=== PATIENT | male | born 1940 | race Caucasian/White ===

== ENCOUNTER 2023-06-26 11:30 | Emergency (ER) | payer MEDICARE, SELFPAY ==
[2023-06-26] VITALS (21 sets, daily range): BP systolic 115–156; BP diastolic 55–77; PULSE 60–85; RESP 18–31; TEMP 36.4; O2SAT 93–98; BMI 31.2
[2023-06-26] MEDS: PANTOPRAZOLE 40 MG VIAL 80 MG IV (12:00)
[2023-06-26 12:08] LABS: Add Manual Diff / Slide Review NO; Basophils Absolute Auto 100 /uL (0-100); Basophils Percent Auto 1.2 % (0-2); Eosinophils Absolute Auto 100 /uL (0-450); Eosinophils Percent Auto 0.9 % (2-4); Lymphocytes Absolute Auto 1200 /uL (1100-4500); Lymphocytes Percent Auto 16.2 % (25-40); Mean Corpuscular HGB Conc 33.3 % (30-36); Mean Corpuscular Volume 99.2 fL (80-100); Monocytes Absolute Auto 1200 /uL (0-900); Monocytes Percent Auto 15.7 % (3-14); Neutrophils Absolute Auto 5000 /uL (1500-7000); Platelet Count 229 X10^3/uL (150-400); Red Blood Cell Count 3.32 X10^6/uL (4.5-5.9); Red Cell Distribution Width 15.1 % (11.6-14.8); White Blood Cell Count 7.5 X10^3/uL (4.5-11.0)
[2023-06-26 12:13] LABS: INR 1.5 (0.9-1.3); Prothrombin Time 17.4 SECONDS (10.1-12.7)
[2023-06-26 12:16] LABS: PTT Partial Thromboplastin Tim 39 SECONDS (26-36)
[2023-06-26 12:17] LABS: Alanine Aminotransferase 15 IU/L (<50); Albumin 4.3 g/dL (3.5-5.0); Albumin Globulin Ratio 1.5 (1.0-2.8); Alkaline Phosphatase 61 U/L (38-126); Aspartate Aminotransferase 19 IU/L (17-59); BUN Creatinine Ratio 13.8 (6-22); Bilirubin Total 0.4 mg/dL (0.2-1.3); Blood Urea Nitrogen 45 mg/dL (9-20); Calcium 9.5 mg/dL (8.4-10.2); Carbon Dioxide 17 mmol/L (22-32); Chloride 106 mmol/L (98-107); Estimated Glomerular Filt Rate 18 mL/min (>60); Globulin 2.8 g/dL (1.7-4.1); Glucose 106 mg/dL (80-110); HEMOLYSIS < 15 (0-50); Potassium 6.1 mmol/L (3.4-5.1); Sodium 134 mmol/L (137-145); Total Protein 7.1 g/dL (6.3-8.2)
[2023-06-26 13:21] LABS: Bacteria Urine None Seen; Culture Indicated Urine Cult Not Indicated; RBC Urine None Seen (0-5/HPF); Squamous Epithelial Cell Urine None Seen (0-5/HPF); Urine Comments Microscopic Normal; WBC Urine None Seen (0-5/HPF)
--- NOTE | 2023-06-26 14:56 | DI.CT.S_ITS ---
PROCEDURE: CT ABDOMEN PELVIS WO CON INDICATIONS: GI bleed TECHNIQUE: Noncontrast 5 mm thick sections acquired from the diaphragms to the symphysis. 5 mm coronal and sagittal reformats were then performed. For radiation dose reduction, the following was used: automated exposure control, adjustment of mA and/or kV according to patient size. COMPARISON: None. FINDINGS: Image quality: Excellent. ABDOMEN: Lung bases: Trace bilateral pleural effusions. Atelectasis is seen in the lung bases. Solid organs: Liver is normal in size. Gallbladder is unremarkable a 2.5 x 1.7 cm fluid attenuation lesion is seen in the tail of the pancreas (29/2) Spleen is normal in size. No adrenal nodules. There is severe atrophy of the left kidney. An exophytic cyst is seen at the interpolar region of the left kidney. The right kidney is normal in size. Vascular calcifications are seen in the right renal sinus. Peritoneum and bowel: Multiple diverticula are seen in the colon without signs of acute diverticulitis. No definite hyperdense blood products within the bowel. Normal appendix. A short segment of small bowel is seen within a ventral hernia without signs of obstruction. Small hiatal hernia. Stomach is unremarkable. Nodes and vessels: No retroperitoneal or mesenteric adenopathy by size criteria. Aorta and inferior vena cava are normal in caliber. Miscellaneous: A moderate-sized supraumbilical hernia contains peritoneal fat and a short segment of small bowel without signs of bowel obstruction. PELVIS: Genitourinary: Bladder wall thickness is normal. Prostate is enlarged, measuring 5.9 cm maximum dimension with coarse calcifications. Miscellaneous: Moderate left and small right fat containing inguinal hernias. Bones: No suspicious bony lesions. No vertebral body compression fractures. Degenerative changes are seen in the hips, spine, and sacroiliac joints. Densely sclerotic lesion in the right iliac bone is most likely a benign bone island. IMPRESSION: 1. Colonic diverticulosis without signs of acute diverticulitis. No hyperdense blood products are seen within the GI tract. 2. Supraumbilical hernia contains a short segment of small bowel without signs of bowel obstruction. 3. Severe chronic left renal atrophy. 4. Trace bilateral pleural effusions with atelectasis of the lung bases. 5. Prostatomegaly. Approved by: Malachi Mac M.D. on 06/26/2023 at 15:48
--- NOTE | 2023-06-26 15:03 | ED.GIBLEED ---
HPI - GI Bleed <Julito Fortune MD - Last Filed: 07/15/23 22:00> General Chief complaint: GI Bleed Stated complaint: black stools for 2 months, sent by [facility] Time Seen by Provider: 06/26/23 14:26 Source: patient Mode of arrival: Wheelchair History of Present Illness HPI Narrative: Patient here with his son. Complains off and on lower abdominal pain for the past 2 or 3 months. Last colonoscopy greater than 10 years ago. Patient states he did have black stools when he was on iron pills. He stopped that a long time ago and no longer had black stools. However the last 2 or 3 months he is had dark green stools. No bright red blood per rectum. No dizziness no syncope. No urinary complaints. Patient describes sharp pain when it does occur and lasting less than 10 minutes. It does not radiate to the chest or the back. Does not radiate to the groin or legs. Patient states only has 1 kidney. Has not had any urinary problems. Related Data Home Medications Medication Instructions Recorded Confirmed sitagliptin phos 50 mg-metformin 1 tab PO QDAY ##0 06/10/17 ER 1,000 mg tablet,extend rel 24h mp (Janumet XR) Previous Rx's Medication Instructions Recorded TADALAFIL (CIALIS~) 5 mg PO QDAY ##60 08/10/11 ezetimibe 10 mg tablet (Zetia) 10 mg PO QDAY ##90 06/08/13 rosuvastatin 10 mg tablet (Crestor) 10 mg PO QDAY ##90 06/08/13 valsartan 160 1 tab PO Q DAY #90 tabs 08/06/13 mg-hydrochlorothiazide 12.5 mg tablet (Diovan HCT) Fluticasone Propionate (FLONASE) 2 spray intranasal QDAY #16 sprays 08/10/13 diltiazem HCl 120 mg 120 mg PO QDAY #90 caps 07/01/17 capsule,extended release 24 hr tamsulosin 0.4 mg capsule (Flomax) 0 PO QDAY #180 caps 07/01/17 Allergies Allergy/AdvReac Type Severity Reaction Status Date / Time Sulfa (Sulfonamide Allergy Mild Unverified 02/26/18 13:05 Antibiotics) [SULFA (SULFONAMIDE ANTIBIOTICS)] Atorvastatin Allergy Unknown MYALGIAS Uncoded 02/26/18 13:05 Review of Systems <Julito Fortune MD - Last Filed: 07/15/23 22:00> Review of Systems Narrative: GENERAL: negative chills, fatigue, malaise, fever, sweats. HEENT: negative sinus pain, ear pain, sore throat RESPIRATORY: negative dyspnea, cough CARDIOVASCULAR: negative chest pain, palpitations GASTROINTESTINAL: negative nausea, vomiting, positive abdominal pain : negative dysuria, frequency, hematuria MUSCULOSKELETAL: negative muscle or bony pain SKIN: negative rash, skin lesions NEUROLOGIC: negative weakness, numbness ROS Unobtainable: All systems reviewed & are unremarkable except as noted in HPI and below Patient History <Julito Fortune MD - Last Filed: 07/15/23 22:00> Social History Smoking Status: Never smoker Smoking Status: Never smoker alcohol intake frequency: holidays/special occasions only Substance Use Type: does not use Exam <Julito Fortune MD - Last Filed: 07/15/23 22:00> Narrative Exam Narrative: GENERAL: in no distress, not toxic not dyspneic HEAD: Normocephalic. EYES: Pupils equal round ENT: Mucous membranes moist. NECK: Trachea midline. CARDIOVASCULAR: Regular rate and rhythm RESPIRATORY: Clear to auscultation. Breath sounds equal bilaterally. No wheezes, rales, or rhonchi. GASTROINTESTINAL: Abdomen soft, mild suprapubic tenderness, no pain out of proportion to exam. Bowel sounds are present. No CVA tenderness. No peritoneal signs EXTREMITIES: No gross deformities. BACK: No flank tenderness. NEURO: AOx4. SKIN: Warm and dry PSYCH: Not anxious, is cooperative Initial Vital Signs Initial Vital Signs: Vital Signs Temperature 97.5 F L 06/26/23 11:32 Pulse Rate 71 06/26/23 11:32 Respiratory Rate 18 06/26/23 11:32 Blood Pressure 145/69 H 06/26/23 11:32 Pulse Oximetry 97 06/26/23 11:32 Oxygen Delivery Method Room Air 06/26/23 11:32 <Vera Akhtar DO - Last Filed: 06/26/23 20:33> Initial Vital Signs Initial Vital Signs: Vital Signs Temperature 97.5 F L 06/26/23 11:32 Pulse Rate 71 06/26/23 11:32 Respiratory Rate 18 06/26/23 11:32 Blood Pressure 145/69 H 06/26/23 11:32 Pulse Oximetry 97 06/26/23 11:32 Oxygen Delivery Method Room Air 06/26/23 11:32 Course <Julito Fortune MD - Last Filed: 07/15/23 22:00> Orders Ordered: Discontinued Medications Sodium Chloride (Normal Saline 0.9%) 1,000 mls @ 1,000 mls/hr IV BOLUS ONE Stop: 06/26/23 17:37 Last Infusion: 06/26/23 18:28 Dose: 0 mls/hr Documented By: Admin: 06/26/23 16:47 Dose: 1,000 mls/hr Documented By: MYRNA Sodium Chloride (Normal Saline 0.9%) 1,000 mls @ 1,000 mls/hr IV BOLUS ONE Stop: 06/26/23 18:55 Last Infusion: 06/26/23 18:51 Dose: 0 mls/hr Documented By: Admin: 06/26/23 17:57 Dose: 1,000 mls/hr Documented By: MYRNA Ondansetron HCl (Ondansetron 4 Mg/2 Ml Inj) 4 mg IV NOW PRN PRN Reason: Nausea And Vomiting Ondansetron HCl (Ondansetron 4 Mg Odt) 4 mg SL NOW PRN PRN Reason: Nausea And Vomiting Pantoprazole Sodium (Pantoprazole 40 Mg Vial) 80 mg IV NOW ONE Stop: 06/26/23 11:38 Last Admin: 06/26/23 12:00 Dose: 80 mg Documented By: VALENTINA Vital Signs Vital signs: Vital Signs - 8 hr 06/26/23 13:43 06/26/23 13:44 06/26/23 13:44 Pulse Rate 64 64 Respiratory Rate 22 23 Blood Pressure 133/72 Pulse Oximetry 97 97 06/26/23 14:00 06/26/23 14:00 06/26/23 14:30 Pulse Rate 67 Respiratory Rate 20 Blood Pressure 116/60 126/65 Pulse Oximetry 93 06/26/23 14:30 06/26/23 15:00 06/26/23 15:00 Pulse Rate 66 66 Respiratory Rate 20 Blood Pressure 136/68 Pulse Oximetry 97 98 06/26/23 15:30 06/26/23 16:00 06/26/23 16:30 Pulse Rate 60 64 62 Respiratory Rate Blood Pressure Pulse Oximetry 98 97 97 06/26/23 17:00 06/26/23 17:30 06/26/23 17:56 Pulse Rate 66 67 74 Respiratory Rate Blood Pressure Pulse Oximetry 06/26/23 17:56 06/26/23 18:00 06/26/23 18:00 Pulse Rate 70 Respiratory Rate Blood Pressure 136/77 144/65 H Pulse Oximetry 06/26/23 18:30 06/26/23 18:30 06/26/23 19:00 Pulse Rate 69 78 Respiratory Rate Blood Pressure 154/70 H Pulse Oximetry 06/26/23 19:01 06/26/23 19:01 06/26/23 19:30 Pulse Rate 70 69 Respiratory Rate 20 Blood Pressure 115/55 L Pulse Oximetry <Vera Akhtar DO - Last Filed: 06/26/23 20:33> Orders Ordered: Discontinued Medications Sodium Chloride (Normal Saline 0.9%) 1,000 mls @ 1,000 mls/hr IV BOLUS ONE Stop: 06/26/23 17:37 Last Infusion: 06/26/23 18:28 Dose: 0 mls/hr Documented By: Admin: 06/26/23 16:47 Dose: 1,000 mls/hr Documented By: MYRNA Sodium Chloride (Normal Saline 0.9%) 1,000 mls @ 1,000 mls/hr IV BOLUS ONE Stop: 06/26/23 18:55 Last Infusion: 06/26/23 18:51 Dose: 0 mls/hr Documented By: Admin: 06/26/23 17:57 Dose: 1,000 mls/hr Documented By: MYRNA Ondansetron HCl (Ondansetron 4 Mg/2 Ml Inj) 4 mg IV NOW PRN PRN Reason: Nausea And Vomiting Ondansetron HCl (Ondansetron 4 Mg Odt) 4 mg SL NOW PRN PRN Reason: Nausea And Vomiting Pantoprazole Sodium (Pantoprazole 40 Mg Vial) 80 mg IV NOW ONE Stop: 06/26/23 11:38 Last Admin: 06/26/23 12:00 Dose: 80 mg Documented By: VALENTINA Vital Signs Vital signs: Vital Signs - 8 hr 06/26/23 13:43 06/26/23 13:44 06/26/23 13:44 Pulse Rate 64 64 Respiratory Rate 22 23 Blood Pressure 133/72 Pulse Oximetry 97 97 06/26/23 14:00 06/26/23 14:00 06/26/23 14:30 Pulse Rate 67 Respiratory Rate 20 Blood Pressure 116/60 126/65 Pulse Oximetry 93 06/26/23 14:30 06/26/23 15:00 06/26/23 15:00 Pulse Rate 66 66 Respiratory Rate 20 Blood Pressure 136/68 Pulse Oximetry 97 98 06/26/23 15:30 06/26/23 16:00 06/26/23 16:30 Pulse Rate 60 64 62 Respiratory Rate Blood Pressure Pulse Oximetry 98 97 97 06/26/23 17:00 06/26/23 17:30 06/26/23 17:56 Pulse Rate 66 67 74 Respiratory Rate Blood Pressure Pulse Oximetry 06/26/23 17:56 06/26/23 18:00 06/26/23 18:00 Pulse Rate 70 Respiratory Rate Blood Pressure 136/77 144/65 H Pulse Oximetry 06/26/23 18:30 06/26/23 18:30 06/26/23 19:00 Pulse Rate 69 78 Respiratory Rate Blood Pressure 154/70 H Pulse Oximetry 06/26/23 19:01 06/26/23 19:01 06/26/23 19:30 Pulse Rate 70 69 Respiratory Rate 20 Blood Pressure 115/55 L Pulse Oximetry MDM - GI Bleed <Julito Fortune MD - Last Filed: 07/15/23 22:00> Lab Data 06/26/23 18:59 06/26/23 18:59 Labs: Lab Results 06/26/23 06/26/23 06/26/23 Range/Units 11:55 11:55 11:55 WBC 7.5 (4.5-11.0) X10^3/uL RBC 3.32 L (4.5-5.9) X10^6/uL Hgb 11.0 L (13.5-17.5) g/dL Hct 33.0 L (41-53) % MCV 99.2 (80-100) fL MCH 33.0 (26-34) PG MCHC 33.3 (30-36) % RDW 15.1 H (11.6-14.8) % Plt Count 229 (150-400) X10^3/uL Neut % (Auto) 66.0 (50-75) % Lymph % (Auto) 16.2 L (25-40) % Stokes % (Auto) 15.7 H (3-14) % Eos % (Auto) 0.9 L (2-4) % Baso % (Auto) 1.2 (0-2) % Neut # (Auto) 5000 (9066-4163) /uL Lymph # (Auto) 1200 (1067-1869) /uL Stokes # (Auto) 1200 H (0-900) /uL Eos # (Auto) 100 (0-450) /uL Baso # (Auto) 100 (0-100) /uL PT 17.4 H (10.1-12.7) SECONDS INR 1.5 H (0.9-1.3) APTT 39 H (26-36) SECONDS Sodium 134 L (137-145) mmol/L Potassium 6.1 H (3.4-5.1) mmol/L Chloride 106 (98-107) mmol/L Carbon Dioxide 17 L (22-32) mmol/L BUN 45 H (9-20) mg/dL Creatinine 3.27 H (0.66-1.25) mg/dL Estimated GFR 18 L (>60) mL/min BUN/Creatinine Ratio 13.8 (6-22) Glucose 106 (80-110) mg/dL Calcium 9.5 (8.4-10.2) mg/dL Total Bilirubin 0.4 (0.2-1.3) mg/dL AST 19 (17-59) IU/L ALT 15 (<50) IU/L Alkaline Phosphatase 61 (38-126) U/L Total Protein 7.1 (6.3-8.2) g/dL Albumin 4.3 (3.5-5.0) g/dL Globulin 2.8 (1.7-4.1) g/dL Albumin/Globulin Ratio 1.5 (1.0-2.8) Urine RBC (0-5/HPF) Urine WBC (0-5/HPF) Ur Squamous Epith Cells (0-5/HPF) Urine Bacteria (None) Ur Culture Indicated? Micro UA Comment Blood Type Antibody Screen 06/26/23 06/26/23 06/26/23 Range/Units 11:55 12:38 18:59 WBC (4.5-11.0) X10^3/uL RBC (4.5-5.9) X10^6/uL Hgb (13.5-17.5) g/dL Hct (41-53) % MCV (80-100) fL MCH (26-34) PG MCHC (30-36) % RDW (11.6-14.8) % Plt Count (150-400) X10^3/uL Neut % (Auto) (50-75) % Lymph % (Auto) (25-40) % Stokes % (Auto) (3-14) % Eos % (Auto) (2-4) % Baso % (Auto) (0-2) % Neut # (Auto) (9653-7734) /uL Lymph # (Auto) (9408-1370) /uL Stokes # (Auto) (0-900) /uL Eos # (Auto) (0-450) /uL Baso # (Auto) (0-100) /uL PT (10.1-12.7) SECONDS INR (0.9-1.3) APTT (26-36) SECONDS Sodium 136 L (137-145) mmol/L Potassium 5.5 H (3.4-5.1) mmol/L Chloride 110 H (98-107) mmol/L Carbon Dioxide 18 L (22-32) mmol/L BUN 42 H (9-20) mg/dL Creatinine 3.03 H (0.66-1.25) mg/dL Estimated GFR 20 L (>60) mL/min BUN/Creatinine Ratio 13.9 (6-22) Glucose 90 (80-110) mg/dL Calcium 8.5 (8.4-10.2) mg/dL Total Bilirubin 0.3 (0.2-1.3) mg/dL AST 22 (17-59) IU/L ALT 17 (<50) IU/L Alkaline Phosphatase 53 (38-126) U/L Total Protein 6.2 L (6.3-8.2) g/dL Albumin 3.8 (3.5-5.0) g/dL Globulin 2.4 (1.7-4.1) g/dL Albumin/Globulin Ratio 1.6 (1.0-2.8) Urine RBC None seen (0-5/HPF) Urine WBC None seen (0-5/HPF) Ur Squamous Epith Cells None seen (0-5/HPF) Urine Bacteria None seen (None) Ur Culture Indicated? Cult not indicated Micro UA Comment Microscopic normal Blood Type O Positive Antibody Screen Negative 06/26/23 Range/Units 18:59 WBC (4.5-11.0) X10^3/uL RBC (4.5-5.9) X10^6/uL Hgb 10.2 L (13.5-17.5) g/dL Hct 30.8 L (41-53) % MCV (80-100) fL MCH (26-34) PG MCHC (30-36) % RDW (11.6-14.8) % Plt Count (150-400) X10^3/uL Neut % (Auto) (50-75) % Lymph % (Auto) (25-40) % Stokes % (Auto) (3-14) % Eos % (Auto) (2-4) % Baso % (Auto) (0-2) % Neut # (Auto) (7206-5802) /uL Lymph # (Auto) (8982-2938) /uL Stokes # (Auto) (0-900) /uL Eos # (Auto) (0-450) /uL Baso # (Auto) (0-100) /uL PT (10.1-12.7) SECONDS INR (0.9-1.3) APTT (26-36) SECONDS Sodium (137-145) mmol/L Potassium (3.4-5.1) mmol/L Chloride (98-107) mmol/L Carbon Dioxide (22-32) mmol/L BUN (9-20) mg/dL Creatinine (0.66-1.25) mg/dL Estimated GFR (>60) mL/min BUN/Creatinine Ratio (6-22) Glucose (80-110) mg/dL Calcium (8.4-10.2) mg/dL Total Bilirubin (0.2-1.3) mg/dL AST (17-59) IU/L ALT (<50) IU/L Alkaline Phosphatase (38-126) U/L Total Protein (6.3-8.2) g/dL Albumin (3.5-5.0) g/dL Globulin (1.7-4.1) g/dL Albumin/Globulin Ratio (1.0-2.8) Urine RBC (0-5/HPF) Urine WBC (0-5/HPF) Ur Squamous Epith Cells (0-5/HPF) Urine Bacteria (None) Ur Culture Indicated? Micro UA Comment Blood Type Antibody Screen Urine Dip Bedside Urine Glucose 100 mg/dl Bedside Urine Bilirubin - Negative Bedside Urine Ketone - Negative Urine Specific [place] 1.005 Bedside Urine Occult Blood - Negative Bedside Urine pH 6.0 Bedside Urine Protein +/- 15 Bedside Urine Urobilinogen - Negative Bedside Urine Nitrite - Negative Bedside Urine Leukocytes - Negative Esterase Imaging Data CT scan - abdomen/pelvis: Radiologist's Impression: [address] [address] [address] Scan Report Signed Patient: Chin Brown MR#: [id number] : 1940 Acct:[id number] Age/Sex: 82 / M Date of Service: 06/26/23 Loc: ED Accession Number: [id number] ?? Procedure: CT abdomen pelvis wo con Ordering Provider: Julito Fortune MD PROCEDURE:? CT ABDOMEN PELVIS WO CON ? INDICATIONS:? GI bleed ? TECHNIQUE:? Noncontrast 5 mm thick sections acquired from the diaphragms to the symphysis.? 5 mm coronal and sagittal reformats were then performed.? For radiation dose reduction, the following was used:? automated exposure control, adjustment of mA and/or kV according to patient size.? ? COMPARISON:? None. ? FINDINGS:? Image quality:? Excellent.? ? ABDOMEN:? Lung bases:? Trace bilateral pleural effusions.? Atelectasis is seen in the lung bases. ? Solid organs:? Liver is normal in size.? Gallbladder is unremarkable a 2.5 x 1.7 cm fluid attenuation lesion is seen in the tail of the pancreas (29/2) Spleen is normal in size.? No adrenal nodules.? There is severe atrophy of the left kidney.? An exophytic cyst is seen at the interpolar region of the left kidney.? The right kidney is normal in size.? Vascular calcifications are seen in the right renal sinus. ? Peritoneum and bowel:? Multiple diverticula are seen in the colon without signs of acute diverticulitis.? No definite hyperdense blood products within the bowel.? Normal appendix.? A short segment of small bowel is seen within a ventral hernia without signs of obstruction.? Small hiatal hernia.? Stomach is unremarkable. ? Nodes and vessels:? No retroperitoneal or mesenteric adenopathy by size criteria.? Aorta and inferior vena cava are normal in caliber.? ? Miscellaneous:? A moderate-sized supraumbilical hernia contains peritoneal fat and a short segment of small bowel without signs of bowel obstruction. ? ? PELVIS:? Genitourinary:? Bladder wall thickness is normal.? Prostate is enlarged, measuring 5.9 cm maximum dimension with coarse calcifications. ? Miscellaneous:? Moderate left and small right fat containing inguinal hernias. ? Bones:? No suspicious bony lesions.? No vertebral body compression fractures.? Degenerative changes are seen in the hips, spine, and sacroiliac joints.? Densely sclerotic lesion in the right iliac bone is most likely a benign bone island. ? IMPRESSION:? 1. Colonic diverticulosis without signs of acute diverticulitis.? No hyperdense blood products are seen within the GI tract. 2. Supraumbilical hernia contains a short segment of small bowel without signs of bowel obstruction. 3. Severe chronic left renal atrophy. 4. Trace bilateral pleural effusions with atelectasis of the lung bases. 5. Prostatomegaly. ? ? ? Approved by: Malachi Mac M.D. on 06/26/2023 at 15:48? [facility] Narrative Medical decision making narrative: Patient here with his son. Complains off and on lower abdominal pain for the past 2 or 3 months. Last colonoscopy greater than 10 years ago. Patient states he did have black stools when he was on iron pills. He stopped that a long time ago and no longer had black stools. However the last 2 or 3 months he is had dark green stools. No bright red blood per rectum. No dizziness no syncope. No urinary complaints. Patient describes sharp pain when it does occur and lasting less than 10 minutes. It does not radiate to the chest or the back. Does not radiate to the groin or legs. Patient states only has 1 kidney. Has not had any urinary problems. After history and exam CBC CMP INR CT abdomen pelvis normal saline MDM CC: Abdominal pain Complicating co-morbidities: Only has 1 kidney Data collected from: Patient and son Medical records reviewed: No recent visit for this complaint Differential considered: Includes but not limited to UTI kidney stone diverticulitis diverticulosis Exam documented above, pertinent findings include: Suprapubic tenderness Lab Test results independently reviewed as above. Pertinent findings: WBC 7.5 hemoglobin 11 hematocrit 33 PT 17.4 INR 1.5 PTT 39 sodium 134 potassium 6.1 bicarb 17 BUN 45 creatinine 3.27 GFR 18 Independently reviewed EKG sinus rhythm rate [address] elevation or depression. No peaked T-waves Imaging studies independently reviewed: CT abdomen pelvis diverticulosis without diverticulitis, severe chronic left renal atrophy Consultations: 5:[address] Upton, hospitalist, recommends IV fluids and then repeat CMP. Will admit if improving renal function and potassium Treatments: Normal saline Re-evaluations: 5:00 p.m.. Reviewed results with patient. At this time renal function is concerning. Agrees for likely admit tonight. Discussion: Appropriate for admission. Patient only has 1 kidney. Need to try rehydrate and see improvement with potassium and renal function. Patient agrees for treatment plan. Diagnosis: Acute renal injury/hyperkalemia/abdominal pain 6:00 p.m.. Brennick: Sign out to Dr Akhtar, awaiting repeat CMP for improvement and then admit. Daytime hospitalist has been informed <Vera Akhtar, DO - Last Filed: 06/26/23 20:33> Lab Data Labs: Lab Results 06/26/23 06/26/23 06/26/23 Range/Units 11:55 11:55 11:55 WBC 7.5 (4.5-11.0) X10^3/uL RBC 3.32 L (4.5-5.9) X10^6/uL Hgb 11.0 L (13.5-17.5) g/dL Hct 33.0 L (41-53) % MCV 99.2 (80-100) fL MCH 33.0 (26-34) PG MCHC 33.3 (30-36) % RDW 15.1 H (11.6-14.8) % Plt Count 229 (150-400) X10^3/uL Neut % (Auto) 66.0 (50-75) % Lymph % (Auto) 16.2 L (25-40) % Stokes % (Auto) 15.7 H (3-14) % Eos % (Auto) 0.9 L (2-4) % Baso % (Auto) 1.2 (0-2) % Neut # (Auto) 5000 (5753-5051) /uL Lymph # (Auto) 1200 (0596-7233) /uL Stokes # (Auto) 1200 H (0-900) /uL Eos # (Auto) 100 (0-450) /uL Baso # (Auto) 100 (0-100) /uL PT 17.4 H (10.1-12.7) SECONDS INR 1.5 H (0.9-1.3) APTT 39 H (26-36) SECONDS Sodium 134 L (137-145) mmol/L Potassium 6.1 H (3.4-5.1) mmol/L Chloride 106 (98-107) mmol/L Carbon Dioxide 17 L (22-32) mmol/L BUN 45 H (9-20) mg/dL Creatinine 3.27 H (0.66-1.25) mg/dL Estimated GFR 18 L (>60) mL/min BUN/Creatinine Ratio 13.8 (6-22) Glucose 106 (80-110) mg/dL Calcium 9.5 (8.4-10.2) mg/dL Total Bilirubin 0.4 (0.2-1.3) mg/dL AST 19 (17-59) IU/L ALT 15 (<50) IU/L Alkaline Phosphatase 61 (38-126) U/L Total Protein 7.1 (6.3-8.2) g/dL Albumin 4.3 (3.5-5.0) g/dL Globulin 2.8 (1.7-4.1) g/dL Albumin/Globulin Ratio 1.5 (1.0-2.8) Urine RBC (0-5/HPF) Urine WBC (0-5/HPF) Ur Squamous Epith Cells (0-5/HPF) Urine Bacteria (None) Ur Culture Indicated? Micro UA Comment Blood Type Antibody Screen 06/26/23 06/26/23 06/26/23 Range/Units 11:55 12:38 18:59 WBC (4.5-11.0) X10^3/uL RBC (4.5-5.9) X10^6/uL Hgb (13.5-17.5) g/dL Hct (41-53) % MCV (80-100) fL MCH (26-34) PG MCHC (30-36) % RDW (11.6-14.8) % Plt Count (150-400) X10^3/uL Neut % (Auto) (50-75) % Lymph % (Auto) (25-40) % Stokes % (Auto) (3-14) % Eos % (Auto) (2-4) % Baso % (Auto) (0-2) % Neut # (Auto) (8901-2268) /uL Lymph # (Auto) (9739-9489) /uL Stokes # (Auto) (0-900) /uL Eos # (Auto) (0-450) /uL Baso # (Auto) (0-100) /uL PT (10.1-12.7) SECONDS INR (0.9-1.3) APTT (26-36) SECONDS Sodium 136 L (137-145) mmol/L Potassium 5.5 H (3.4-5.1) mmol/L Chloride 110 H (98-107) mmol/L Carbon Dioxide 18 L (22-32) mmol/L BUN 42 H (9-20) mg/dL Creatinine 3.03 H (0.66-1.25) mg/dL Estimated GFR 20 L (>60) mL/min BUN/Creatinine Ratio 13.9 (6-22) Glucose 90 (80-110) mg/dL Calcium 8.5 (8.4-10.2) mg/dL Total Bilirubin 0.3 (0.2-1.3) mg/dL AST 22 (17-59) IU/L ALT 17 (<50) IU/L Alkaline Phosphatase 53 (38-126) U/L Total Protein 6.2 L (6.3-8.2) g/dL Albumin 3.8 (3.5-5.0) g/dL Globulin 2.4 (1.7-4.1) g/dL Albumin/Globulin Ratio 1.6 (1.0-2.8) Urine RBC None seen (0-5/HPF) Urine WBC None seen (0-5/HPF) Ur Squamous Epith Cells None seen (0-5/HPF) Urine Bacteria None seen (None) Ur Culture Indicated? Cult not indicated Micro UA Comment Microscopic normal Blood Type O Positive Antibody Screen Negative 06/26/23 Range/Units 18:59 WBC (4.5-11.0) X10^3/uL RBC (4.5-5.9) X10^6/uL Hgb 10.2 L (13.5-17.5) g/dL Hct 30.8 L (41-53) % MCV (80-100) fL MCH (26-34) PG MCHC (30-36) % RDW (11.6-14.8) % Plt Count (150-400) X10^3/uL Neut % (Auto) (50-75) % Lymph % (Auto) (25-40) % Stokes % (Auto) (3-14) % Eos % (Auto) (2-4) % Baso % (Auto) (0-2) % Neut # (Auto) (6873-2763) /uL Lymph # (Auto) (8511-5896) /uL Stokes # (Auto) (0-900) /uL Eos # (Auto) (0-450) /uL Baso # (Auto) (0-100) /uL PT (10.1-12.7) SECONDS INR (0.9-1.3) APTT (26-36) SECONDS Sodium (137-145) mmol/L Potassium (3.4-5.1) mmol/L Chloride (98-107) mmol/L Carbon Dioxide (22-32) mmol/L BUN (9-20) mg/dL Creatinine (0.66-1.25) mg/dL Estimated GFR (>60) mL/min BUN/Creatinine Ratio (6-22) Glucose (80-110) mg/dL Calcium (8.4-10.2) mg/dL Total Bilirubin (0.2-1.3) mg/dL AST (17-59) IU/L ALT (<50) IU/L Alkaline Phosphatase (38-126) U/L Total Protein (6.3-8.2) g/dL Albumin (3.5-5.0) g/dL Globulin (1.7-4.1) g/dL Albumin/Globulin Ratio (1.0-2.8) Urine RBC (0-5/HPF) Urine WBC (0-5/HPF) Ur Squamous Epith Cells (0-5/HPF) Urine Bacteria (None) Ur Culture Indicated? Micro UA Comment Blood Type Antibody Screen Urine Dip Bedside Urine Glucose 100 mg/dl Bedside Urine Bilirubin - Negative Bedside Urine Ketone - Negative Urine Specific [place] 1.005 Bedside Urine Occult Blood - Negative Bedside Urine pH 6.0 Bedside Urine Protein +/- 15 Bedside Urine Urobilinogen - Negative Bedside Urine Nitrite - Negative Bedside Urine Leukocytes - Negative Esterase MDM Narrative Medical decision making narrative: Patient here with his son. Complains off and on lower abdominal pain for the past 2 or 3 months. Last colonoscopy greater than 10 years ago. Patient states he did have black stools when he was on iron pills. He stopped that a long time ago and no longer had black stools. However the last 2 or 3 months he is had dark green stools. No bright red blood per rectum. No dizziness no syncope. No urinary complaints. Patient describes sharp pain when it does occur and lasting less than 10 minutes. It does not radiate to the chest or the back. Does not radiate to the groin or legs. Patient states only has 1 kidney. Has not had any urinary problems. After history and exam CBC CMP INR CT abdomen pelvis normal saline [facility] CC: Abdominal pain Complicating co-morbidities: Only has 1 kidney Data collected from: Patient and son Medical records reviewed: No recent visit for this complaint Differential considered: Includes but not limited to UTI kidney stone diverticulitis diverticulosis Exam documented above, pertinent findings include: Suprapubic tenderness Lab Test results independently reviewed as above. Pertinent findings: WBC 7.5 hemoglobin 11 hematocrit 33 PT 17.4 INR 1.5 PTT 39 sodium 134 potassium 6.1 bicarb 17 BUN 45 creatinine 3.27 GFR 18 Independently reviewed EKG sinus rhythm rate [address] elevation or depression. No peaked T-waves Imaging studies independently reviewed: CT abdomen pelvis diverticulosis without diverticulitis, severe chronic left renal atrophy Consultations: 5:[address] Upton, hospitalist, recommends IV fluids and then repeat CMP. Will admit if improving renal function and potassium Treatments: Normal saline Re-evaluations: 5:00 p.m.. Reviewed results with patient. At this time renal function is concerning. Agrees for likely admit tonight. Discussion: Appropriate for admission. Patient only has 1 kidney. Need to try rehydrate and see improvement with potassium and renal function. Patient agrees for treatment plan. Diagnosis: Acute renal injury/hyperkalemia/abdominal pain 6:00 p.m.. [place]: Sign out to Dr Akhtar, awaiting repeat CMP for improvement and then admit. Daytime hospitalist has been informed Patient seen evaluated by myself I reviewed blood work creatinine has improved with 2 L of IV fluid so did potassium. Patient reports that he has elevated potassium secondary to spironolactone. He has history of AFib Xarelto and diltiazem. He is not anemic he was having some ongoing right-sided abdominal pain CT is negative for any diverticulitis or appendicitis. I have looked at his previous blood work which he is able to pull up on his phone for me his creatinine in December in [place] was 2.36. He overall is feeling better he is hemodynamically stable blood work is improved. I do not see a need to admit him to the hospital. He understands and agrees that his kidney function and potassium need to be rechecked. He reports feeling fatigued, at this time I do not have an explanation for this. Discharge Plan Departure Patient Disposition: Home Clinical Impression: Acute kidney injury, Acute hyperkalemia Instructions: Acute Kidney Injury, Hyperkalemia Activity Restrictions/Additional Instructions: *You have been diagnosed with dehydration, worsening kidney function and elevated potassium *What to do: Your blood work has improved. Please have your blood work rechecked this week on [place]. Potassium was elevated to 6.1 year creatinine was 3.2 and went down to 3.0 with fluids. Recommend Gatorade or Gatorade like product not tons of water *Continue to take medications as directed *Follow up with your primary care provider in 2-3 days or call [phone] *Return to ER if you should have increasing weakness dizziness passing out or any new, worsening or concerning symptoms Prescriptions: No Action TADALAFIL (CIALIS~) 5 mg PO QDAY Qty: 60 6RF ezetimibe [Zetia] 10 MG tablet 10 mg PO QDAY Qty: 90 1RF rosuvastatin [Crestor] 10 MG tablet 10 mg PO QDAY Qty: 90 1RF valsartan-hydrochlorothiazide [Diovan HCT] 160 MG/12.5 MG tablet 1 tab PO Q DAY Qty: 90 1RF Fluticasone Propionate (FLONASE) 2 spray Intranasal QDAY Qty: 16 5RF sitagliptin phos-metformin [Janumet XR] 50 MG/1,000 MG tablet, ER multiphase 24 hr 1 tab PO QDAY Qty: 0 tamsulosin [Flomax] 0.4 MG capsule,extended release 24hr 0 PO QDAY Qty: 180 0RF diltiazem HCl 120 MG capsule,extended release 24hr 120 mg PO QDAY Qty: 90 1RF Referrals: Miscellaneous,Doctor, MD [Primary Care Provider] - Stand Alone Forms: Patient Portal/API
[2023-06-26] MEDS: SODIUM CHLORIDE 0.9% 1,000 ML 1000 ML IV ×2 (16:47→17:57)
[2023-06-26 19:29] LABS: Hematocrit 30.8 % (41-53); Hemoglobin 10.2 g/dL (13.5-17.5)
[2023-06-26 19:36] LABS: Alanine Aminotransferase 17 IU/L (<50); Albumin 3.8 g/dL (3.5-5.0); Albumin Globulin Ratio 1.6 (1.0-2.8); Alkaline Phosphatase 53 U/L (38-126); Aspartate Aminotransferase 22 IU/L (17-59); BUN Creatinine Ratio 13.9 (6-22); Bilirubin Total 0.3 mg/dL (0.2-1.3); Blood Urea Nitrogen 42 mg/dL (9-20); Calcium 8.5 mg/dL (8.4-10.2); Carbon Dioxide 18 mmol/L (22-32); Chloride 110 mmol/L (98-107); Estimated Glomerular Filt Rate 20 mL/min (>60); Globulin 2.4 g/dL (1.7-4.1); Glucose 90 mg/dL (80-110); HEMOLYSIS < 15 (0-50); Sodium 136 mmol/L (137-145); Total Protein 6.2 g/dL (6.3-8.2)
[2023-06-26 19:42] LABS: Potassium 5.5 mmol/L (3.4-5.1)
== END 2023-06-26 20:40 | disposition home or self-care (01) ==
PROVIDERS: Emergency Medicine; Emergency Provider Emergency Medicine
DX: N17.9 Acute kidney failure, unspecified (principal); E87.5 Hyperkalemia
CPT/HCPCS: 74176; 80053; 81003; 81015; 85014; 85018; 85025; 85610; 85730; 86850; 86900; 86901; 93005; 93010; 96361; 96374; 99283; 99284; C9113